=== PATIENT | female | born 1990 | race Caucasian/White ===

== ENCOUNTER 2017-04-24 15:27 | Emergency (ER) | payer MEDICAID ==
[~2017-04-24] VITALS: Ht 154.9 cm; Wt 84.0 kg
[2017-04-24 15:29] VITALS: Ht 154.9 cm; Wt 84.0 kg
[2017-04-24] MEDS ORDERED: ONDANSETRON 4 MG INJ IV STA ×3 (16:01→18:21)
[2017-04-24] MEDS ORDERED: SOD CHLORIDE 0.9% 1,000 ML IV STA (16:01)
[2017-04-24] MEDS ORDERED: HYDROmorphONE 1 MG/ML SYG IV STA ×3 (16:01→18:21)
--- NOTE | 2017-04-24 16:07 | ERA ---
ER Documentation Chief Complaint Date/Time DATE: 04/24/17 TIME: 16:06 Chief Complaint vomiting HPI Is a 27-year-old female who complains of daily to nausea vomiting and pain in the right lower quadrant. She says the pain is located in the right mid abdomen and right lower quadrant described as dull but occasionally sharp. She has had some vomiting has been nonbilious nonbloody and no diarrhea no fever. Denies any dysuria or hematuria. Pain is not worse after eating per se ROS All systems reviewed and are negative except as per history of present illness. Allergies Allergies: Coded Allergies: No Known Allergy (Unverified , 04/24/17) PMhx/Soc History of Surgery: Yes (cervical polyp removal) Hx Alcohol Use: No (2x month) Hx Substance Use: No Hx Tobacco Use: No Smoking Status: Former smoker FmHx Family History: No coronary disease Physical Exam Vitals Vital Signs Date Time Temp Pulse Resp B/P Pulse Ox O2 Delivery O2 Flow Rate FiO2 04/24/17 15:29 97.7 98 20 116/71 98 Physical Exam Const: Well-developed, well-nourished Head: Atraumatic, normocephalic Eyes: Normal Conjunctiva, PERRLA, EOMI, normal sclera, no nystagmus ENT: Normal External Ears, Nose and Mouth, moist mucus membranes. Neck: Full range of motion. No meningismus, no lymphadenopathy. Resp: Clear to auscultation bilaterally, no wheezing, rhonchi, rales Cardio: Regular rate and rhythm, no murmurs, S1 S2 present Abd: Soft, moderate right lower quadrant tenderness with positive Rovsing sign, non distended. Normal bowel sounds, no guarding or rebound, no pulsitile abdominal masses or bruits Skin: No petechiae or rashes, no ecchymosis , no maculopapular rash Back: No midline or flank tenderness Ext: No cyanosis, or edema, FROM x 4, normal inspection, neurovascularly intact x 4 Neur: Awake and alert, STR 5/5 x 4, sensation intact x 4, no focal findings, cerebellum intact Psych: Normal Mood and Affect Result Diagram: 04/24/17 1620 04/24/17 1620 Results 24 hrs Laboratory Tests Test 04/24/17 16:20 04/24/17 16:27 White Blood Count 10.110^3/ul Red Blood Count 4.5910^6/ul Hemoglobin 13.5g/dl Hematocrit 40.3% Mean Corpuscular Volume 87.8fl Mean Corpuscular Hemoglobin 29.4pg Mean Corpuscular Hemoglobin Concent 33.5g/dl Red Cell Distribution Width 12.6% Platelet Count 45463^3/UL Mean Platelet Volume 10.1fl Neutrophils % 65.9% Lymphocytes % 25.1% Monocytes % 5.2% Eosinophils % 3.2% Basophils % 0.3% Nucleated Red Blood Cells % 0.0/100WBC Neutrophils # 6.610^3/ul Lymphocytes # 2.510^3/ul Monocytes # 0.510^3/ul Eosinophils # 0.310^3/ul Basophils # 0.010^3/ul Nucleated Red Blood Cells # 0.010^3/ul Sodium Level 144mmol/L Potassium Level 3.9mmol/L Chloride Level 101mmol/L Carbon Dioxide Level 27mmol/L Anion Gap 20 Blood Urea Nitrogen 14mg/dl Creatinine 0.80mg/dl Glucose Level 141mg/dl Calcium Level 8.9mg/dl Total Bilirubin 0.4mg/dl Direct Bilirubin 0.00mg/dl Indirect Bilirubin 0.4mg/dl Aspartate Amino Transf (AST/SGOT) 16IU/L Alanine Aminotransferase (ALT/SGPT) 19IU/L Alkaline Phosphatase 67IU/L Total Protein 7.6g/dl Albumin 4.4g/dl Globulin 3.20g/dl Albumin/Globulin Ratio 1.37 Lipase 59U/L Bedside Urine pH (LAB) 5.5 Bedside Urine Protein (LAB) Negative Bedside Urine Glucose (UA) Negative Bedside Urine Ketones (LAB) Negative Bedside Urine Blood Trace-intact Bedside Urine Nitrite (LAB) Negative Bedside Urine Leukocyte Esterase (L Negative Current Medications Medications (Trade) Dose Ordered Sig/S[place] Route PRN Reason Start Time Stop Time Status Last Admin Dose Admin Sodium Chloride (NS) 1,000 ml @ 1,000 mls/hr Q1H STAT IV 04/24/17 16:01 04/24/17 17:00 DC 04/24/17 16:16 Hydromorphone HCl (Dilaudid) 1 mg ONCE STAT IV 04/24/17 16:01 04/24/17 16:03 DC 04/24/17 16:18 Ondansetron HCl (Zofran Inj) 4 mg ONCE STAT IV 04/24/17 16:01 04/24/17 16:03 DC 04/24/17 16:15 Hydromorphone HCl (Dilaudid) 1 mg ONCE STAT IV 04/24/17 18:13 04/24/17 18:17 DC Ondansetron HCl (Zofran Inj) 4 mg ONCE STAT IV 04/24/17 18:13 04/24/17 18:17 DC Hydromorphone HCl (Dilaudid) 1 mg ONCE STAT IV 04/24/17 18:21 04/24/17 18:23 DC Ondansetron HCl (Zofran Inj) 4 mg ONCE STAT IV 04/24/17 18:21 04/24/17 18:23 DC Procedures/MDM PROCEDURE: CT abdomen and pelvis without contrast. CLINICAL INDICATION: Right lower quadrant pain, vomiting TECHNIQUE: CT of the abdomen and pelvis without contrast was performed on a multidetector CT scanner, with multiplanar reformats. One or more of the following dose reduction techniques were used: Automated exposure control, adjustment in mA and / or kV according to patient size, use of iterative reconstructive technique. CTDIvol = 17 mGy and DLP = 956 mGy-cm. COMPARISON: None. FINDINGS: There is minimal bibasilar atelectasis. The liver, gallbladder, spleen, pancreas, adrenal glands, and kidneys appear unremarkable. No biliary dilation is identified. No renal/ureteral calculus or hydronephrosis - hydroureter is identified. The uterus, adnexa and urinary bladder are grossly unremarkable. No free air, free fluid or focal fluid collection is identified. The appendix is within normal limits. No colonic diverticular disease is identified. Stomach, small and large bowel are grossly unremarkable. No abdominal or pelvic lymphadenopathy is seen. The abdominal aorta is normal in caliber. Osseous structures are intact. IMPRESSION: No acute abnormality identified in the abdomen or pelvis. RPTAT: VV .Arik Doyle MD, MD Date Time Electronically viewed and signed by .Arik Doyle MD, on 04/24/2017 17:57 .O/ CC: MACHO FAIRCHILD DO Patient's blood work is unremarkable her CAT scan does not show any intra- abdominal process. Perhaps she has had a bad food exposure or a viral illness. We will treat symptomatically and give her strict abdominal precautions. We will discharge in stable condition Departure Diagnosis: Primary Impression: Right lower quadrant abdominal pain Additional Impression: Vomiting Qualified Code: R11.2 - Non-intractable vomiting with nausea, unspecified vomiting type Condition: Stable MACHO FAIRCHILD DO Apr 24, 2017 16:07
[2017-04-24 16:21] LABS: URINE BLOOD (Dip) POC Trace-intact (NEGATIVE)
[2017-04-24 16:37] LABS: BASOPHILS % 0.3 % (0.0-2.0); EOSINOPHILS # 0.3 10^3/ul (0.0-0.5); EOSINOPHILS % 3.2 % (0.0-7.0); HEMATOCRIT 40.3 % (37.0-47.0); HEMOGLOBIN 13.5 g/dl (12.0-16.0); LYMPHOCYTES # 2.5 10^3/ul (0.8-2.9); LYMPHOCYTES % 25.1 % (15.0-51.0); MEAN CORPUSCULAR HEMOGLOBIN 29.4 pg (29.0-33.0); MEAN CORPUSCULAR HGB CONC 33.5 g/dl (32.0-37.0); MEAN CORPUSCULAR VOLUME 87.8 fl (82.0-101.0); MEAN PLATELET VOLUME 10.1 fl (7.4-10.4); MONOCYTE # 0.5 10^3/ul (0.3-0.9); MONOCYTES % 5.2 % (0.0-11.0); NEUTROPHIL # 6.6 10^3/ul (1.6-7.5); NEUTROPHILS % 65.9 % (39.0-77.0); PLATELET COUNT 218 10^3/UL (140-415); RED BLOOD COUNT 4.59 10^6/ul (4.20-5.40); RED CELL DISTRIBUTION WIDTH 12.6 % (11.5-14.5); WHITE BLOOD COUNT 10.1 10^3/ul (4.8-10.8)
[2017-04-24 16:57] LABS: ALBUMIN 4.4 g/dl (3.3-4.9); ALBUMIN/GLOBULIN RATIO 1.37; BILIRUBIN,INDIRECT 0.4 mg/dl (0-1.1); BILIRUBIN,TOTAL 0.4 mg/dl (0.2-1.3); CALCIUM 8.9 mg/dl (8.4-10.2); CREATININE 0.8 mg/dl (0.44-1.00); POTASSIUM 3.9 mmol/L (3.5-5.1); TOTAL PROTEIN 7.6 g/dl (6.1-8.1)
--- NOTE | 2017-04-24 17:58 | RADRPT ---
PROCEDURE: CT abdomen and pelvis without contrast. CLINICAL INDICATION: Right lower quadrant pain, vomiting TECHNIQUE: CT of the abdomen and pelvis without contrast was performed on a multidetector CT scanne r, with multiplanar reformats. One or more of the following dose reduction techniques were used: Au tomated exposure control, adjustment in mA and / or kV according to patient size, use of iterative r econstructive technique. CTDIvol = 17 mGy and DLP = 956 mGy-cm. COMPARISON: None. FINDINGS: There is minimal bibasilar atelectasis. The liver, gallbladder, spleen, pancreas, adrenal glands, and kidneys appear unremarkable. No bilia ry dilation is identified. No renal/ureteral calculus or hydronephrosis - hydroureter is identified . The uterus, adnexa and urinary bladder are grossly unremarkable. No free air, free fluid or focal fluid collection is identified. The appendix is within normal limi ts. No colonic diverticular disease is identified. Stomach, small and large bowel are grossly unre markable. No abdominal or pelvic lymphadenopathy is seen. The abdominal aorta is normal in caliber. Osseous structures are intact. IMPRESSION: No acute abnormality identified in the abdomen or pelvis. RPTAT: VV .Arik Doyle MD, MD Date Time Electronically viewed and signed by .Arik Doyle MD, on 04/24/2017 17:57 .O/
[2017-04-24] MEDS ORDERED: ONDA4TAB14 PO (18:32)
[2017-04-24] MEDS ORDERED: HYDR-902 PO (18:32)
[2017-04-24 19:13] VITALS: BP 93/55; PULSE 67; RESP 20; TEMP 97.6
== END 2017-04-24 18:33 | disposition home or self-care (01) ==
LOC: FTE 15:27
DX: R10.11 Right upper quadrant pain (principal); R11.2 Nausea with vomiting, unspecified; Z87.891 Personal history of nicotine dependence
CPT/HCPCS: 36415; 74176; 80053; 81003; 83690; 85025; 96374; 96375; 96376; J1170; J2405; J7030; Z7502

== ENCOUNTER 2017-10-19 21:33 | Emergency (ER) | END 2017-10-20 05:05 | disposition left against medical advice (07) ==